=== PATIENT | female | born 1940 | race Caucasian/White ===

== ENCOUNTER → 2016-12-05 | Outpatient (CLI) | payer MEDICARE, OTHER | END | disposition home or self-care (01) | LOC: CDC 11:45 | DX: R94.31 Abnormal electrocardiogram [ECG] [EKG] (principal); I25.2 Old myocardial infarction; R10.9 Unspecified abdominal pain; Z91.041 Radiographic dye allergy status; Z88.2 Allergy status to sulfonamides; Z88.0 Allergy status to penicillin; Z88.8 Allergy status to other drugs, medicaments and biological substances | CPT/HCPCS: 93000 ==

== ENCOUNTER 2016-12-12 09:43 | Inpatient (IN) | payer OTHER ==
[~2016-12-12] VITALS: Ht 165.1 cm; Wt 88.0 kg
[~2016-12-12 09:43] MED LIST: CLARINEX5 MG PO; CRESTOR10 MG PO; NASONEX17 GM BOTH NARES; NORVASC10 MG PO; PROBIOTIC1 EAC2 PO; PROSOM 2 MG TAB2 MG PO; PROTONIX40 MG PO; VITAMIN B-122500 MCG SL; VITAMIN D2000 UNIT PO
[2016-12-12 12:11] VITALS: BP 118/73
[2016-12-12 17:37] VITALS: BP 113/57
[2016-12-12 20:01] VITALS: BP 111/69
[2016-12-12 23:38] VITALS: BP 103/57
[2016-12-13 03:32] VITALS: BP 104/57
[2016-12-13 05:47] LABS: HEMATOCRIT 36.9 % (36.0-46.0); MCH 31.4 PG (29.0-34.0); MCHC 33.3 G/DL (30.0-36.0); MCV 94.1 FL (83-99); MEAN PLAT.VOLUME 10.9 uM^3 (9.5-12.4); PLATELET COUNT 198 K/uL (156-360); RBC DIS.WIDTH-CV 12.9 % (11.8-14.6); RED BLOOD COUNT 3.92 M/uL (3.80-5.20); WHITE BLOOD COUNT 7.8 K/uL (4.1-10.2)
[2016-12-13 06:12] LABS: ANION GAP 7 MEQ/L (2-14); CHLORIDE 104 MEQ/L (99-109); GFR ESTIMATE (CALCULATED) > 59 mL/min/; GLUCOSE 144 mg/dL (70-99); MAGNESIUM 1.8 mg/dl (1.3-2.7); POTASSIUM 3.9 MEQ/L (3.7-5.4); SAMPLE HEMOLYSIS CHECK 0; SAMPLE ICTERIC CHECK 0; SAMPLE LIPEMIA CHECK 0; SODIUM 137 MEQ/L (136-147); UREA NITROGEN (BUN) 7 mg/dL (9-23)
[2016-12-13 07:40] VITALS: BP 119/62
[2016-12-13 11:41] VITALS: BP 115/62
[2016-12-13 16:29] VITALS: BP 142/70
[2016-12-13 20:00] VITALS: BP 120/64
[2016-12-14 00:11] VITALS: BP 127/60
[2016-12-14 04:05] VITALS: BP 125/70
[2016-12-14 06:02] LABS: HEMATOCRIT 35.1 % (36.0-46.0); MCH 31.2 PG (29.0-34.0); MCHC 33.6 G/DL (30.0-36.0); MCV 92.9 FL (83-99); MEAN PLAT.VOLUME 10.9 uM^3 (9.5-12.4); PLATELET COUNT 179 K/uL (156-360); RBC DIS.WIDTH-CV 12.7 % (11.8-14.6); RBC DIS.WIDTH-SD 43.1 % (39-53); RED BLOOD COUNT 3.78 M/uL (3.80-5.20); WHITE BLOOD COUNT 7.5 K/uL (4.1-10.2)
[2016-12-14 06:23] LABS: ANION GAP 7 MEQ/L (2-14); CHLORIDE 103 MEQ/L (99-109); GFR ESTIMATE (CALCULATED) > 59 mL/min/; GLUCOSE 128 mg/dL (70-99); POTASSIUM 3.9 MEQ/L (3.7-5.4); SAMPLE HEMOLYSIS CHECK 0; SAMPLE ICTERIC CHECK 0; SAMPLE LIPEMIA CHECK 0; SODIUM 136 MEQ/L (136-147); UREA NITROGEN (BUN) 3 mg/dL (9-23)
[2016-12-14 08:18] VITALS: BP 132/74
[2016-12-14 11:35] VITALS: BP 124/67
[2016-12-14 16:30] VITALS: BP 113/59
[2016-12-14 20:00] VITALS: BP 124/67
[2016-12-15] VITALS (9 sets, daily range): BP systolic 107–137; BP diastolic 53–76
[2016-12-15 09:46] LABS: HEMATOCRIT 35.9 % (36.0-46.0); MCH 31.7 PG (29.0-34.0); MCV 93.2 FL (83-99); MEAN PLAT.VOLUME 10.9 uM^3 (9.5-12.4); PLATELET COUNT 195 K/uL (156-360); RBC DIS.WIDTH-CV 12.8 % (11.8-14.6); RBC DIS.WIDTH-SD 43.3 % (39-53); RED BLOOD COUNT 3.85 M/uL (3.80-5.20); WHITE BLOOD COUNT 6.7 K/uL (4.1-10.2)
[2016-12-15 10:10] LABS: ANION GAP 10 MEQ/L (2-14); CHLORIDE 106 MEQ/L (99-109); GFR ESTIMATE (CALCULATED) > 59 mL/min/; GLUCOSE 121 mg/dL (70-99); POTASSIUM 3.8 MEQ/L (3.7-5.4); SAMPLE HEMOLYSIS CHECK 0; SAMPLE ICTERIC CHECK 0; SAMPLE LIPEMIA CHECK 0; SODIUM 140 MEQ/L (136-147); UREA NITROGEN (BUN) 5 mg/dL (9-23)
[2016-12-16 00:10] VITALS: BP 115/62
[2016-12-16 03:45] VITALS: BP 106/57
[2016-12-16 04:52] LABS: HEMATOCRIT 33.8 % (36.0-46.0); MCH 31.7 PG (29.0-34.0); MCHC 34.3 G/DL (30.0-36.0); MCV 92.3 FL (83-99); MEAN PLAT.VOLUME 10.8 uM^3 (9.5-12.4); PLATELET COUNT 199 K/uL (156-360); RBC DIS.WIDTH-CV 12.3 % (11.8-14.6); RED BLOOD COUNT 3.66 M/uL (3.80-5.20); WHITE BLOOD COUNT 4.8 K/uL (4.1-10.2)
[2016-12-16 05:05] LABS: CHLORIDE 107 mEq/L (99-109); POTASSIUM 3.9 mEq/L (3.7-5.4); SODIUM 141 mEq/L (136-147)
[2016-12-16 05:07] LABS: GLUCOSE 103 mg/dL (70-99)
[2016-12-16 05:09] LABS: ANION GAP 7 MEQ/L (2-14)
[2016-12-16 05:11] LABS: GFR ESTIMATE (CALCULATED) > 59 mL/min/
[2016-12-16 05:12] LABS: UREA NITROGEN (BUN) 4 mg/dL (9-23)
[2016-12-16 08:00] VITALS: BP 117/58
[2016-12-16 15:54] VITALS: BP 118/64
[2016-12-16 16:08] VITALS: BP 11/64
[2016-12-17] VITALS: BP 141/67
[2016-12-17 06:56] LABS: HEMATOCRIT 35.2 % (36.0-46.0); MCH 30.8 PG (29.0-34.0); MCHC 33.2 G/DL (30.0-36.0); MCV 92.6 FL (83-99); MEAN PLAT.VOLUME 11.2 uM^3 (9.5-12.4); PLATELET COUNT 214 K/uL (156-360); RBC DIS.WIDTH-CV 12.6 % (11.8-14.6); RBC DIS.WIDTH-SD 42.8 % (39-53); WHITE BLOOD COUNT 4.4 K/uL (4.1-10.2)
[2016-12-17 06:58] LABS: ANION GAP 7 MEQ/L (2-14); CHLORIDE 106 MEQ/L (99-109); GFR ESTIMATE (CALCULATED) > 59 mL/min/; GLUCOSE 88 mg/dL (70-99); POTASSIUM 3.9 MEQ/L (3.7-5.4); SAMPLE HEMOLYSIS CHECK 0; SAMPLE ICTERIC CHECK 0; SAMPLE LIPEMIA CHECK 0; SODIUM 141 MEQ/L (136-147); UREA NITROGEN (BUN) 4 mg/dL (9-23)
[2016-12-17 08:22] VITALS: BP 111/68
[2016-12-17 16:30] VITALS: BP 109/63
[2016-12-18 01:10] VITALS: BP 126/68
[2016-12-18 06:27] LABS: HEMATOCRIT 34.7 % (36.0-46.0); MCH 31.5 PG (29.0-34.0); MCHC 33.7 G/DL (30.0-36.0); MCV 93.3 FL (83-99); PLATELET COUNT 213 K/uL (156-360); RBC DIS.WIDTH-CV 12.6 % (11.8-14.6); RED BLOOD COUNT 3.72 M/uL (3.80-5.20); WHITE BLOOD COUNT 4.5 K/uL (4.1-10.2)
[2016-12-18 06:53] LABS: ANION GAP 6 MEQ/L (2-14); CHLORIDE 102 MEQ/L (99-109); GFR ESTIMATE (CALCULATED) > 59 mL/min/; GLUCOSE 99 mg/dL (70-99); POTASSIUM 3.9 MEQ/L (3.7-5.4); SAMPLE HEMOLYSIS CHECK 0; SAMPLE ICTERIC CHECK 0; SAMPLE LIPEMIA CHECK 0; SODIUM 138 MEQ/L (136-147); UREA NITROGEN (BUN) 7 mg/dL (9-23)
[2016-12-18] MEDS ORDERED: HYDROCODON-ACE1 EAC7 PO (08:00)
[2016-12-18 08:29] VITALS: BP 120/66
== END 2016-12-18 12:50 | disposition home or self-care (01) | DRG 336 ==
LOC: 2SOUTH 09:43 → 3EAST 11:05 → 2SOUTH 11:05 → SDC 12:50 → EDSTATUS 16:11 → 2SOUTH 16:12 → 3EAST 17:22
PROVIDERS: Physician Assistant; Surgery
PROC: 0DN80ZZ Release Small Intestine, Open Approach (ICD-10-PCS; principal; 2016-12-12)
DX: R10.12 Left upper quadrant pain (principal); K56.5 Intestinal adhesions [bands] with obstruction (postinfection); I10 Essential (primary) hypertension; K21.9 Gastro-esophageal reflux disease without esophagitis; E78.00 Pure hypercholesterolemia, unspecified; E66.9 Obesity, unspecified; Z68.33 Body mass index [BMI] 33.0-33.9, adult; Z88.0 Allergy status to penicillin; Z88.2 Allergy status to sulfonamides; Z88.1 Allergy status to other antibiotic agents; Z91.040 Latex allergy status
CPT/HCPCS: 80048; 83735; 84100; 85027; 86850; 86900; 86901; 94799; 97530 GO; J0330; J0744; J1170; J1650; J1885; J2250; J2405; J2550; J2710; J2765; J3010; J7050; S0028

== ENCOUNTER 2016-12-20 12:08 | Inpatient (IN) | payer OTHER ==
[~2016-12-20] VITALS: Ht 165.1 cm; Wt 86.1 kg
[~2016-12-20 12:08] MED LIST changes: +HYDROCODON-ACE1 EAC7 PO
[2016-12-20 12:57] LABS: HEMATOCRIT 41.6 % (36.0-46.0); MCH 31.7 PG (29.0-34.0); MCHC 35.1 G/DL (30.0-36.0); MCV 90.4 FL (83-99); MEAN PLAT.VOLUME 10.6 uM^3 (9.5-12.4); RBC DIS.WIDTH-CV 12.3 % (11.8-14.6); RBC DIS.WIDTH-SD 39.8 % (39-53)
[2016-12-20 12:58] LABS: PLATELET COUNT 311 K/uL (156-360); WHITE BLOOD COUNT 8.5 K/uL (4.1-10.2)
[2016-12-20 13:02] LABS: CHLORIDE 101 mEq/L (99-109); POTASSIUM 3.8 mEq/L (3.7-5.4); SODIUM 138 mEq/L (136-147)
[2016-12-20 13:05] LABS: ANION GAP 11 MEQ/L (2-14); GLUCOSE 162 mg/dL (70-99)
[2016-12-20 13:06] LABS: TOTAL BILIRUBIN 0.4 mg/dL (0.0-1.0)
[2016-12-20 13:07] LABS: ALKALINE PHOSPHATASE 58 IU/L (3-129); GFR ESTIMATE (CALCULATED) > 59 mL/min/
[2016-12-20 13:09] LABS: UREA NITROGEN (BUN) 10 mg/dL (9-23)
[2016-12-20 13:11] LABS: LIPASE 63 U/L (1.0-51.0)
[2016-12-20 15:40] LABS: ADD MIUA? YES; BILIRUBIN NEGATIVE; BLOOD NEGATIVE; COLOR YELLOW ((YELLOW)); GLUCOSE (STRIP) NEGATIVE; KETONES 5; LEUKOCYTES LARGE; NITRITE POSITIVE; PROTEIN (STRIP) NEGATIVE; UROBILINOGEN 0.2 MG/DL (0.2-1.0)
[2016-12-20 15:57] LABS: EPITHELIAL CELLS 3+ /HPF; MUCUS TRACE /LPF; UCUL ADDED? NO; WHITE BLOOD CELLS 20-30 /HPF (0-5)
[2016-12-20 16:00] LABS: BACTERIA RARE /HPF
[2016-12-20] MEDS ORDERED: LO-DOSE ASPIRIN81 M2 PO (16:38)
[2016-12-20 18:15] VITALS: BP 120/66
[2016-12-21] VITALS: BP 123/18
[2016-12-21 04:21] VITALS: BP 114/61
[2016-12-21 07:34] LABS: ANION GAP 9 MEQ/L (2-14); CHLORIDE 103 MEQ/L (99-109); GFR ESTIMATE (CALCULATED) > 59 mL/min/; GLUCOSE 122 mg/dL (70-99); POTASSIUM 3.9 MEQ/L (3.7-5.4); SAMPLE HEMOLYSIS CHECK 0; SAMPLE ICTERIC CHECK 0; SAMPLE LIPEMIA CHECK 0; SODIUM 140 MEQ/L (136-147); UREA NITROGEN (BUN) 8 mg/dL (9-23)
[2016-12-21 07:36] LABS: HEMATOCRIT 36.4 % (36.0-46.0); MCH 31.6 PG (29.0-34.0); MCHC 33.5 G/DL (30.0-36.0); MCV 94.3 FL (83-99); PLATELET COUNT 265 K/uL (156-360); RBC DIS.WIDTH-CV 12.9 % (11.8-14.6); RBC DIS.WIDTH-SD 43.9 % (39-53); RED BLOOD COUNT 3.86 M/uL (3.80-5.20); WHITE BLOOD COUNT 6.5 K/uL (4.1-10.2)
[2016-12-21 08:00] VITALS: BP 103/56
[2016-12-21 12:00] VITALS: BP 115/70
[2016-12-21 15:49] VITALS: BP 100/62
[2016-12-21 16:22] LABS: POINT-OF-CARE METER ID UU14162508
[2016-12-22 00:04] VITALS: BP 125/71
[2016-12-22 11:44] VITALS: BP 100/69
[2016-12-22 15:20] VITALS: BP 130/75
[2016-12-22 20:32] VITALS: BP 117/70
[2016-12-23] VITALS (7 sets, daily range): BP systolic 107–135; BP diastolic 54–76
[2016-12-24 08:20] LABS: HEMATOCRIT 34.7 % (36.0-46.0); MCH 31.9 PG (29.0-34.0); MCHC 34.3 G/DL (30.0-36.0); MEAN PLAT.VOLUME 10.3 uM^3 (9.5-12.4); PLATELET COUNT 277 K/uL (156-360); RBC DIS.WIDTH-CV 12.8 % (11.8-14.6); RBC DIS.WIDTH-SD 43.5 % (39-53); RED BLOOD COUNT 3.73 M/uL (3.80-5.20); WHITE BLOOD COUNT 5.7 K/uL (4.1-10.2)
[2016-12-24 08:35] VITALS: BP 107/62
[2016-12-24 08:49] LABS: ANION GAP 9 MEQ/L (2-14); CHLORIDE 106 MEQ/L (99-109); GFR ESTIMATE (CALCULATED) > 59 mL/min/; GLUCOSE 117 mg/dL (70-99); SAMPLE HEMOLYSIS CHECK 0; SAMPLE ICTERIC CHECK 0; SAMPLE LIPEMIA CHECK 0; SODIUM 140 MEQ/L (136-147); UREA NITROGEN (BUN) 3 mg/dL (9-23)
[2016-12-24 15:42] VITALS: BP 128/70
[2016-12-24 23:26] VITALS: BP 108/61
[2016-12-25 07:55] VITALS: BP 111/68
[2016-12-25 15:03] VITALS: BP 127/67
[2016-12-25 22:55] VITALS: BP 146/79
[2016-12-26 06:50] VITALS: BP 114/61
[2016-12-26 16:30] VITALS: BP 116/59
[2016-12-26 23:00] VITALS: BP 123/65
[2016-12-27 08:04] VITALS: BP 100/67
[2016-12-27] MEDS ORDERED: METOCLOPRAMIDE10 MG PO (11:36)
[2016-12-27] MEDS ORDERED: ZOFRAN ODT4 MG PO (13:51)
== END 2016-12-27 15:40 | disposition home or self-care (01) | DRG 389 ==
LOC: EME 12:08 → EDOF 17:06 → 2EAST 17:06
PROVIDERS: Surgery; Thoracic Surgery (Cardiothoracic Vascular Surgery)
DX: K56.7 Ileus, unspecified (principal); N39.0 Urinary tract infection, site not specified; E86.0 Dehydration; K21.9 Gastro-esophageal reflux disease without esophagitis; I10 Essential (primary) hypertension; Z88.0 Allergy status to penicillin; Z88.2 Allergy status to sulfonamides; Z88.8 Allergy status to other drugs, medicaments and biological substances; Z91.048 Other nonmedicinal substance allergy status
CPT/HCPCS: 71010; 74000; 74020; 74177; 80048; 80053; 81003; 82948; 83690; 83735; 84100; 85027; 99281; 99285; C9113; J0744; J2270; J2405; J2550; J7030

== ENCOUNTER 2017-02-07 16:35 | Emergency (ER) | payer OTHER ==
[~2017-02-07] VITALS: Ht 165.1 cm; Wt 89.0 kg
[~2017-02-07 16:35] MED LIST changes: +LO-DOSE ASPIRIN81 M2 PO; +METOCLOPRAMIDE10 MG PO; +ZOFRAN ODT4 MG PO
[2017-02-07 17:42] LABS: HEMATOCRIT 41.3 % (36.0-46.0); MCH 30.8 PG (29.0-34.0); MCHC 33.2 G/DL (30.0-36.0); MCV 92.8 FL (83-99); MEAN PLAT.VOLUME 10.5 uM^3 (9.5-12.4); PLATELET COUNT 245 K/uL (156-360); RBC DIS.WIDTH-CV 11.8 % (11.8-14.6); RBC DIS.WIDTH-SD 40.1 % (39-53); RED BLOOD COUNT 4.45 M/uL (3.80-5.20); WHITE BLOOD COUNT 5.8 K/uL (4.1-10.2)
[2017-02-07 17:51] LABS: CHLORIDE 104 mEq/L (99-109); POTASSIUM 4.9 mEq/L (3.7-5.4); SODIUM 140 mEq/L (136-147)
[2017-02-07 17:53] LABS: GLUCOSE 109 mg/dL (70-99)
[2017-02-07 17:54] LABS: ANION GAP 9 MEQ/L (2-14)
[2017-02-07 17:55] LABS: TOTAL BILIRUBIN 0.5 mg/dL (0.0-1.0)
[2017-02-07 17:57] LABS: ALKALINE PHOSPHATASE 55 IU/L (3-129); GFR ESTIMATE (CALCULATED) > 59 mL/min/
[2017-02-07 17:58] LABS: UREA NITROGEN (BUN) 7 mg/dL (9-23)
[2017-02-07] MEDS ORDERED: FIORICET,ESG1 TABLET PO (22:45)
[2017-02-07 23:08] VITALS: BP 134/87
== END 2017-02-07 23:11 | disposition home or self-care (01) ==
LOC: EME 16:35
DX: R51 Headache (principal); H93.13 Tinnitus, bilateral; I10 Essential (primary) hypertension; Z79.82 Long term (current) use of aspirin; Z87.891 Personal history of nicotine dependence
CPT/HCPCS: 70450; 80053; 85027; 99281; 99284; J1100; J1200; J2765

== ENCOUNTER 2017-03-01 10:04 | Day surgery (SDC) | payer OTHER ==
[~2017-03-01] VITALS: Ht 165.1 cm; Wt 86.2 kg
[~2017-03-01 10:04] MED LIST changes: +FIORICET,ESG1 TABLET PO; +FISH OIL 1,0001 EA10 PO; +LIORESAL10 MG PO; +PROTONIX20 MG PO
[2017-03-01 10:39] VITALS: BP 112/74
[2017-03-01] MEDS ORDERED: NORCO 5/3251 TABLET PO (14:07)
[2017-03-01 15:00] VITALS: BP 110/56
[2017-03-01 15:58] VITALS: BP 114/68
== END 2017-03-01 16:15 | disposition home or self-care (01) ==
LOC: SDC 10:04
PROC: 06LY3CC Occlusion of Hemorrhoidal Plexus with Extraluminal Device, Percutaneous Approach (ICD-10-PCS; principal; 2017-03-01)
DX: K64.8 Other hemorrhoids (principal); K64.4 Residual hemorrhoidal skin tags; I10 Essential (primary) hypertension; K21.9 Gastro-esophageal reflux disease without esophagitis; M81.0 Age-related osteoporosis without current pathological fracture; K58.9 Irritable bowel syndrome, unspecified; M19.90 Unspecified osteoarthritis, unspecified site; Z82.0 Family history of epilepsy and other diseases of the nervous system; Z80.9 Family history of malignant neoplasm, unspecified; Z88.0 Allergy status to penicillin; Z88.2 Allergy status to sulfonamides; Z88.8 Allergy status to other drugs, medicaments and biological substances; Z88.1 Allergy status to other antibiotic agents; Z91.09 Other allergy status, other than to drugs and biological substances; Z91.040 Latex allergy status
CPT/HCPCS: J0131; J1100; J1170; J2405; J3010; S0020

== ENCOUNTER 2017-03-20 18:57 | Emergency (ER) | payer OTHER ==
[~2017-03-20] VITALS: Ht 165.1 cm; Wt 86.1 kg
[~2017-03-20 18:57] MED LIST changes: +NORCO 5/3251 TABLET PO
[2017-03-20 22:11] LABS: ADD MIUA? YES; BILIRUBIN NEGATIVE; BLOOD NEGATIVE; COLOR STRAW ((YELLOW)); GLUCOSE (STRIP) NEGATIVE; KETONES NEGATIVE; LEUKOCYTES SMALL; NITRITE NEGATIVE; PROTEIN (STRIP) NEGATIVE; SPECIFIC GRAVITY 1.004 (1.000-1.030); UROBILINOGEN 0.2 MG/DL (0.2-1.0)
[2017-03-20 22:26] LABS: BACTERIA RARE /HPF; EPITHELIAL CELLS RARE /HPF; MUCUS NONE SEEN /LPF; RED BLOOD CELLS NONE SEEN /HPF (0-5); WHITE BLOOD CELLS 0-5 /HPF (0-5)
[2017-03-20] MEDS ORDERED: ANUSOL HC,ANUCO25 MG PR (22:54)
[2017-03-20 23:10] VITALS: BP 130/71
== END 2017-03-20 23:12 | disposition home or self-care (01) ==
LOC: EME 18:57
PROVIDERS: Physician Assistant
DX: G89.18 Other acute postprocedural pain (principal); Z98.890 Other specified postprocedural states; Z91.040 Latex allergy status; Z88.2 Allergy status to sulfonamides; Z88.0 Allergy status to penicillin
CPT/HCPCS: 80053; 81003; 83605; 85025; 99281; 99284

== ENCOUNTER 2017-06-09 19:14 | Emergency (ER) | payer OTHER ==
[~2017-06-09] VITALS: Ht 165.1 cm; Wt 87.6 kg
[~2017-06-09 19:14] MED LIST changes: +ANUSOL HC,ANUCO25 MG PR
[2017-06-09] MEDS ORDERED: BACLOFEN10 MG PO (19:38)
[2017-06-09 20:03] LABS: ADD MIUA? YES; BILIRUBIN NEGATIVE; BLOOD NEGATIVE; COLOR YELLOW ((YELLOW)); GLUCOSE (STRIP) NEGATIVE; KETONES NEGATIVE; LEUKOCYTES SMALL; NITRITE NEGATIVE; PROTEIN (STRIP) NEGATIVE; SPECIFIC GRAVITY 1.003 (1.000-1.030); UROBILINOGEN 0.2 MG/DL (0.2-1.0)
[2017-06-09 20:08] LABS: BACTERIA RARE /HPF; EPITHELIAL CELLS RARE /HPF; MUCUS TRACE /LPF; RED BLOOD CELLS 0-5 /HPF (0-5); UCUL ADDED? NO; WHITE BLOOD CELLS 0-5 /HPF (0-5)
[2017-06-09 20:50] LABS: EOSINOPHIL (%) 0.6 % (0-5); HEMATOCRIT 39.4 % (36.0-46.0); IMMATURE GRANULOCYTE (%) 0.2 % (0.0-0.7); INSTRUMENT ABS NEUTROPHIL CT 2.8 K/uL; LYMPHOCYTE COUNT 1.4 K/uL (1.0-2.8); MCH 30.7 PG (29.0-34.0); MCHC 34.3 G/DL (30.0-36.0); MCV 89.5 FL (83-99); MEAN PLAT.VOLUME 10.6 uM^3 (9.5-12.4); MONOCYTE (%) 9.3 % (3-12); MONOCYTE COUNT 0.4 K/uL (0-0.8); NEUTROPHIL (%) 58.9 % (45-76); NEUTROPHIL COUNT 2.8 K/uL (1.8-6.4); PLATELET COUNT 249 K/uL (156-360); RBC DIS.WIDTH-CV 11.9 % (11.8-14.6); RBC DIS.WIDTH-SD 39.1 % (39-53); WHITE BLOOD COUNT 4.7 K/uL (4.1-10.2)
[2017-06-09 21:00] LABS: CHLORIDE 105 mEq/L (99-109); POTASSIUM 4.1 mEq/L (3.7-5.4); SODIUM 139 mEq/L (136-147)
[2017-06-09 21:02] LABS: GLUCOSE 96 mg/dL (70-99)
[2017-06-09 21:04] LABS: ANION GAP 9 MEQ/L (2-14); TOTAL BILIRUBIN 0.5 mg/dL (0.0-1.0)
[2017-06-09 21:06] LABS: ALKALINE PHOSPHATASE 61 IU/L (3-129); GFR ESTIMATE (CALCULATED) > 59 mL/min/
[2017-06-09 21:07] LABS: UREA NITROGEN (BUN) 10 mg/dL (9-23)
[2017-06-09] MEDS ORDERED: KEFLEX500 MG PO (21:59)
[2017-06-09] MEDS ORDERED: PYRIDIUM200 MG PO (21:59)
[2017-06-09] MEDS ORDERED: MOTRIN600 MG PO (21:59)
[2017-06-09 23:10] VITALS: BP 133/64
== END 2017-06-09 23:14 | disposition home or self-care (01) ==
LOC: EME 19:14
PROVIDERS: Physician Assistant
DX: N30.00 Acute cystitis without hematuria (principal); K21.9 Gastro-esophageal reflux disease without esophagitis; I10 Essential (primary) hypertension; Z91.040 Latex allergy status; Z88.2 Allergy status to sulfonamides; Z88.0 Allergy status to penicillin; Z87.891 Personal history of nicotine dependence
CPT/HCPCS: 74176; 80053; 81003; 85025; 87086; 99281; 99285; J0696